=== PATIENT | male | born 1955 | race Caucasian/White ===

== ENCOUNTER 2016-11-14 18:33 | Emergency (ER) ==
--- NOTE | 2016-11-14 20:58 | PROVIDER DOCUMENTATION ---
[facility] General - General Chief Complaint: Eye Complaint Stated Complaint: FEVER/SWOLLEN EYE/RASH Time Seen by Provider: 11/14/16 20:55 Source: patient Allergies/Adverse Reactions: Patient Allergies Allergy/AdvReac Type Severity Reaction Status Date / Time No Known Allergies Allergy Verified 11/14/16 19:43 Home Medications: Home Medication List Medication Instructions Recorded Confirmed Last Taken Type Acyclovir 800 mg PO DAY #25 tablet 11/14/16 Unknown Rx - History of Present Illness-[facility] General Nature of Presenting Problem: 61 Y/O M presents to ED with EENT. Pt states that the onset was on Monday pt states that he woke up with crust in his eye, with drainage, and swollen with redness. Pt believed that he had pink eye, but it didn't go away and began to spread. EENT Location: reports: eye (R), facial Severity: reports: moderate Onset/Duration: reports: 3 days ago Timing: reports: still present, getting worse Prearrival Treatment: Initiated no prearrival treatment - Eyes Eye Problem Symptoms: reports: redness, eyelid swelling, decrease vision, blurred vision Apparent Injury?: No Review of Systems - Adult - REVIEW OF SYSTEMS - ADULT Constitutional: denies: chills, fever Eyes: reports: decreased vision, blurred vision, redness Cardiovascular: reports: no symptoms reported Respiratory: reports: no symptoms reported Gastrointestinal: denies: abdominal pain, diarrhea, nausea, vomiting Neurological: denies: dizziness/vertigo, headache/migraines Past History - Adult - PAST MEDICAL HISTORY-ADULT Review of Records: reports: Old Records Reviewed, Nursing Assessment Review, Medications Reviewed, Social history reviewed & non-contributory. Physical Exam- [facility] - Physical Exam [facility] Initial Vital Signs Reviewed: Yes General Appearance: alert, mild distress. negative: appears well Eye Exam: bilateral eye: abnormal EOM, abnormal pupil, eyelid inflammation Ear Exam: bilateral ear: auricle normal, canal normal, TM normal Nasal Exam: normal inspection Throat Exam: normal mouth inspection, pharynx normal Neck: non-tender, full range of motion, supple Respiratory: chest non-tender, lungs clear, normal breath sounds Cardiovascular: normal peripheral pulses, regular rate, rhythm Abdominal Exam: normal bowel sounds, non tender, soft Lymphatic: no adenopathy Back Exam: normal inspection, no CVA tenderness, no vertebral tenderness Extremity: normal range of motion, non-tender, normal gait Integumentary: swelling (swelling in face and eye), zoster-like rash (on face on right side of face and eye) Neurologic: target developer II-XII nml as tested, grossly normal Psych/Mental Status: normal mood/affect, normal thought content, normal thought process, oriented x 3 Progress - PLAN OF CARE/RESULTS Progress/Plan/Lab Results: Orders Category Date Time Status Acyclovir [Zovirax] Med 11/14/16 21:06 Discontinued 800 mg PO NOW ONE Gentamicin 0.3% Oph Drops Med 11/14/16 21:06 Discontinued 1 ml RIGHT EYE NOW ONE Vital Signs - 24 hr 11/14/16 19:40 Temperature 98.8 F Pulse Rate 101 H Respiratory 18 Rate Blood Pressure 136/69 O2 Sat by Pulse 95 Oximetry Departure - Departure Time of Disposition Order: 21:07 DIAGNOSIS: Shingles Qualifiers: Herpes zoster complications: with ocular involvement Herpes zoster ocular complication detail: unspecified herpes zoster eye disease Qualified Code(s): B02.30 - Zoster ocular disease, unspecified Disposition: HOME 01 Certified Medical Emergency: Emergent Condition: Stable Additional Instructions: ED Follow Up Instructions: You have been treated by a care provider in the Emergency Department. These instructions are being provided to you so you can have an understanding of how to care for yourself upon discharge. Upon discharge from the Emergency Department, you are responsible for making arrangements for follow-up care by a physician of your choice. Take all prescribed medications as directed. Return to the Emergency Department immediately for any new or worsening symptoms. You may call the Physician Referral phone number at [phone] to obtain a list of Physicians who are taking new patients. Prescriptions: Acyclovir 800 mg PO 5XDAY #25 tablet Referrals: None,PCP [Primary Care Provider] - Attestation - Scribe Verification/Attestation Scribe:: Racheal Zurita Acting as Scribe for:: Minh Gautam Scribe documention review:: This chart was documented by a scribe and accurately reflects the service the provider performed and the decisions made by the provider.
[2016-11-14] MEDS ORDERED: GENTAMICIN 0.3% OPH DROPS RIGHT EYE ONE (21:06)
[2016-11-14] MEDS ORDERED: ZOVIRAX PO ONE (21:06)
[2016-11-14 21:26] VITALS: BP 136/98
== END 2016-11-14 21:26 | disposition home or self-care (01) ==
LOC: P.ED 18:33
DX: B02.30 Zoster ocular disease, unspecified (principal); R50.9 Fever, unspecified; R21 Rash and other nonspecific skin eruption; R22.0 Localized swelling, mass and lump, head; H53.8 Other visual disturbances
CPT/HCPCS: 99282